=== PATIENT | female | born 1945 | race Caucasian/White ===

== ENCOUNTER 2022-06-26 08:58 | Emergency (ER) | payer OTHER ==
[~2022-06-26] VITALS: Ht 157.5 cm; Wt 70.3 kg
[2022-06-26 09:04] VITALS: BP_SYST 156
--- NOTE | 2022-06-26 09:50 | NUR ---
PT BIB AWAKE AND ALERT AO X4. NO SOB OR DISTRESS. PT C/O GENERALIZED WEAKNESS SINCE YESTERDAY WITH COUGH AND NAUSEA. PT DENIES VOMITING AND PAIN. 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
--- NOTE | 2022-06-26 09:51 | NUR ---
MD DR DOMINGUEZ AT BEDSIDE
[2022-06-26 10:26] LABS: BASOPHILS % (AUTO) 0.6 % (0.0-2.0); HEMATOCRIT 35.9 % (36-48); HEMOGLOBIN 12.1 g/dL (12.0-16.0); LYMPHOCYTES # (AUTO) 0.4 K/uL (1.0-5.5); LYMPHOCYTES % (AUTO) 5.5 % (20.5-51.5); MEAN CORPUSCULAR HEMOGLOBIN 29 pg (27-31); MEAN CORPUSCULAR HGB CONC 34 % (32-36); MEAN CORPUSCULAR VOLUME 87 fL (79.0-98.0); MONOCYTES # (AUTO) 0.7 K/uL (0.0-1.0); MONOCYTES % (AUTO) 8.8 % (1.7-9.3); NEUTROPHILS # (AUTO) 6.6 K/uL (1.8-7.7); NEUTROPHILS % (AUTO) 85.1 % (40.0-70.0); PLATELET COUNT (AUTO) 228 K/uL (130-430); RED BLOOD CELL COUNT(AUTO) 4.15 MIL/uL (4.2-6.2); RED CELL DISTRIBUTION WIDTH 16.6 % (9.0-15.0); WHITE BLOOD COUNT (AUTO) 7.8 K/uL (4.8-10.8)
[2022-06-26] MEDS ORDERED: NS 500 ML IV ONE (10:45)
[2022-06-26 11:05] LABS: ANION GAP 8 (5-15); CALCIUM 9.7 mg/dL (8.4-11.0); CHLORIDE 101 mmol/L (98-107); GLUCOSE 106 mg/dL (70-99); UREA NITROGEN, BLOOD 12 mg/dL (8-21)
[2022-06-26 11:25] LABS: ALANINE AMINOTRANSFERASE 16 U/L (12-78); ALBUMIN 2.9 g/dL (3.4-4.8); ASPARTATE AMINOTRANSFERASE 17 U/L (10-37); TOTAL BILIRUBIN 0.5 mg/dL (0.0-1.0)
[2022-06-26 14:34] LABS: BILIRUBIN,URINE NEGATIVE (NEGATIVE); BLOOD, URINE NEGATIVE (NEGATIVE); CLARITY/URINE TURBID (CLEAR); COLOR,URINE YELLOW (YELLOW); GLUCOSE,URINE NEGATIVE (NEGATIVE); KETONES,URINE 1+ (NEGATIVE); LEUKOCYTE ESTERASE ,URINE 1+ (NEGATIVE); NITRITE, URINE POSITIVE (NEGATIVE); PROTEIN URINE NEGATIVE (NEGATIVE)
[2022-06-26] MEDS ORDERED: NITR-85 PO (14:54)
[2022-06-26 14:58] LABS: BACTERIA,URINE MODERATE /HPF (None Seen); RBC,URINE 0-3 /HPF (0-3)
[2022-06-26 15:00] VITALS: BP_SYST 156
--- NOTE | 2022-06-26 15:00 | NUR ---
Patient given written and verbal discharge instructions and verbalizes understanding. ER MD discussed with patient the results and treatment provided. Patient in stable condition. ID arm band removed. Rx of macrobid given. Patient educated on pain management and to follow up with PMD. Pain Scale 0. Opportunity for questions provided and answered. Medication side effect fact sheet provided.
== END 2022-06-26 15:00 | disposition home or self-care (01) ==
LOC: SED 08:58
DX: R53.1 Weakness (principal); R05.9 Cough, unspecified; R06.02 Shortness of breath; I10 Essential (primary) hypertension; Z79.899 Other long term (current) drug therapy; Z20.822 Contact with and (suspected) exposure to COVID-19
CPT/HCPCS: 99285; 96360; 71045; 87426; 80053; 81000; 85025; 87040; 87086; 84484; 36415; 93005; 83605; 87804 ×2; J7040; J7030

== ENCOUNTER 2022-08-29 13:48 | Emergency (ER) | payer OTHER ==
[~2022-08-29] VITALS: Ht 157.5 cm; Wt 63.5 kg
[~2022-08-29 13:48] MED LIST: NITR-85 PO
[2022-08-29 14:00] VITALS: BP_SYST 144
[2022-08-29] MEDS ORDERED: IBUPROFEN 800 MG TABLET PO ONE (15:30)
[2022-08-29] MEDS ORDERED: HYDROcodone/ACETAMIN 10-325 MG TAB PO ONE (15:30)
[2022-08-29 15:47] LABS: BASOPHILS % (AUTO) 0.2 % (0.0-2.0); HEMATOCRIT 41.1 % (36-48); HEMOGLOBIN 13.7 g/dL (12.0-16.0); LYMPHOCYTES # (AUTO) 0.7 K/uL (1.0-5.5); LYMPHOCYTES % (AUTO) 7.7 % (20.5-51.5); MEAN CORPUSCULAR HEMOGLOBIN 28 pg (27-31); MEAN CORPUSCULAR HGB CONC 33 % (32-36); MEAN CORPUSCULAR VOLUME 85 fL (79.0-98.0); MONOCYTES # (AUTO) 0.9 K/uL (0.0-1.0); MONOCYTES % (AUTO) 9.8 % (1.7-9.3); NEUTROPHILS # (AUTO) 7.6 K/uL (1.8-7.7); NEUTROPHILS % (AUTO) 82.3 % (40.0-70.0); PLATELET COUNT (AUTO) 183 K/uL (130-430); RED BLOOD CELL COUNT(AUTO) 4.83 MIL/uL (4.2-6.2); RED CELL DISTRIBUTION WIDTH 15.4 % (9.0-15.0); WHITE BLOOD COUNT (AUTO) 9.3 K/uL (4.8-10.8)
[2022-08-29 16:07] LABS: ANION GAP 13 (5-15); CALCIUM 9.9 mg/dL (8.4-11.0); CHLORIDE 103 mmol/L (98-107); CREATININE 0.86 mg/dL (0.55-1.30); GLUCOSE 129 mg/dL (70-99); UREA NITROGEN, BLOOD 16 mg/dL (8-21)
[2022-08-29 16:18] LABS: ALANINE AMINOTRANSFERASE 16 U/L (12-78); ALBUMIN 3.5 g/dL (3.4-4.8); ASPARTATE AMINOTRANSFERASE 15 U/L (10-37); C-REACTIVE PROTEIN QUANT 2.8 mg/dL (0-0.5); TOTAL BILIRUBIN 0.4 mg/dL (0.0-1.0); URIC ACID 4.7 mg/dL (2.4-7.0)
[2022-08-29 16:51] LABS: ERYTHROCYTE SEDIMENTATION RATE 34 MM/HR (0-20)
[2022-08-29] MEDS ORDERED: IBUP-1969 PO (17:45)
[2022-08-29] MEDS ORDERED: HYDR-3917 PO (17:45)
[2022-08-29] MEDS ORDERED: IBUPROFEN 800 MG TABLET ONE (18:00)
[2022-08-29] MEDS ORDERED: HYDROcodone/ACETAMIN 10-325 MG TAB ONE (18:00)
== END 2022-08-29 17:45 | disposition home or self-care (01) ==
LOC: SED 13:48
DX: M25.512 Pain in left shoulder (principal); Z79.899 Other long term (current) drug therapy
CPT/HCPCS: 36415; 73030; 80053; 84550; 85025; 85651-TC; 86140; 99284